=== PATIENT | male | born 1985 | race Two or more races ===

== ENCOUNTER 2025-05-25 09:07 | Outpatient (CLI) | payer OTHER ==
[~2025-05-25] VITALS: Ht 182.9 cm; Wt 109.0 kg
[~2025-05-25 09:07] MED LIST: ALBUTEROL SULFATE 2.5 MG/0.5 ML INH CONCENTRATE NEB SOLN INH PRN; EPINEPHrine INJ 1 MG/ML 1ML AMP IM PRN; diphenhydrAMINE 50 MG/ML VIAL IV PRN
[2025-05-25] MEDS: diphenhydrAMINE 25MG PO PRIOR TO INFUSION PO ONE (09:26)
[2025-05-25] MEDS: ACETAMINOPHEN 650MG PO PRIOR TO INFUSION PO ONE (09:26)
[2025-05-25 09:27] VITALS: BP 150/76; O2SAT 100
[2025-05-25] MEDS: IRON SUCROSE 300 MG in NS 250 ML IV ONE (10:02)
[2025-05-25 10:55] VITALS: BP 112/59; O2SAT 98
[2025-05-25 12:30] VITALS: BP 128/66; O2SAT 97
== END 2025-05-25 12:30 | disposition home or self-care (01) ==
LOC: M INFU 09:07
PROVIDERS: ATTEND Specialist
DX: D50.9 Iron deficiency anemia, unspecified (principal); Z88.8 Allergy status to other drugs, medicaments and biological substances
CPT/HCPCS: 96365; 96366; 96375; J1756; J2919

== ENCOUNTER 2025-06-01 08:53 | Outpatient (CLI) | payer OTHER ==
[~2025-06-01] VITALS: Ht 182.9 cm; Wt 109.0 kg
[2025-06-01 09:35] VITALS: BP 136/67; O2SAT 98
[2025-06-01] MEDS: diphenhydrAMINE 25MG PO PRIOR TO INFUSION PO ONE (09:45)
[2025-06-01] MEDS: ACETAMINOPHEN 650MG PO PRIOR TO INFUSION PO ONE (09:45)
[2025-06-01] MEDS: IRON SUCROSE 300 MG in NS 250 ML IV ONE (09:53)
[2025-06-01 11:34] VITALS: BP 127/63; O2SAT 100
== END 2025-06-01 11:35 | disposition home or self-care (01) ==
LOC: M INFU 08:53
PROVIDERS: ATTEND Specialist
DX: D50.9 Iron deficiency anemia, unspecified (principal); Z88.8 Allergy status to other drugs, medicaments and biological substances
CPT/HCPCS: 96365; 96366; J1756